=== PATIENT | male | born 1975 | race Caucasian/White ===

== ENCOUNTER 2017-06-11 15:14 | Emergency (ER) | payer OTHER ==
--- NOTE | 2017-06-11 16:06 | EDPHY ---
H & P Stated Complaint: left knee pain, joint effusion on xray today - Medical/Surgical History Hx Asthma: No Hx Chronic Respiratory Disease: No Hx Diabetes: No Hx Cardiac Disease: No Hx Renal Disease: No Hx Cirrhosis: No Hx Alcoholism: No Hx HIV/AIDS: No Hx Splenectomy or Spleen Trauma: No Other PMH: knee sx - Social History Smoking Status: Never smoked Time Seen by Provider: 06/11/17 15:44 HPI/ROS: CHIEF COMPLAINT: Atraumatic left knee pain HISTORY OF PRESENT ILLNESS: 41-year-old male complaining of atraumatic left knee pain since awaking this morning. He has prior history of multiple knee surgeries. He has been active as usual, lasts 1 for a long bike ride yesterday but notes no trauma or unusual events. He woke with a large swollen knee. Went to urgent care had an x-ray performed, showing a large effusion and was referred to the ER for further evaluation after prescription for opiate and prednisone provided to the patient. He denies: Fever, chills, flu-like symptoms, discoloration. REVIEW OF SYSTEMS: A ten point review of systems was performed and is negative with the exception of the items mentioned in the HPI PAST MEDICAL & SURGICAL HISTORY: Multiple left knee surgeries, last one in 2003 SOCIAL HISTORY:Nonsmoker. No IV drug use. PHYSICAL EXAM (Prior to examination, patient consented to physical exam, hands were washed and my usual and customary physical exam procedures followed) 1) GENERAL: Well-developed, well-nourished, alert and oriented. Appears uncomfortable 2) HEAD: Normocephalic, atraumatic 3) HEENT: Pupils equal, round, reactive to light bilaterally. Sclera anicteric. 4) NECK: Full range of motion, no meningeal signs. 5) LUNGS: Clear auscultation bilaterally, no wheezes, no rhonchi, no retractions. 6) HEART: Regular rate and rhythm, no murmur, no heave, no gallop. 7) ABDOMEN: No guarding, no rebound, no focal tenderness, negative McBurney's, negative Fraga's, negative Rovsing's, negative peritoneal sign, 8) MUSCULOSKELETAL: Left lower extremity: Unable to fully extend the left knee. Large effusion noted appears to be primarily prepatellar. Normal color. Increased warmth. No signs of overlying cellulitis. No crepitus. No lymphangitic streaking. Distal DP PT pulses present and brisk. Capillary refill less than 2 sec. 9) BACK: No visual or palpable abnormality. 10) SKIN: No rash, no petechiae. 11) Psychiatric: Patient is oriented X 3, there is no agitation. DIFFERENTIAL DIAGNOSIS: In no particular order including but not limited to acute inflammatory arthritis, crystal induced arthritis, septic arthritis. (Maria Antonia Mandel Sara) Constitutional: Initial Vital Signs Temperature (C) 36.7 C 06/11/17 15:16 Heart Rate 90 06/11/17 15:16 Respiratory Rate 20 06/11/17 15:16 Blood Pressure 114/87 H 06/11/17 15:16 O2 Sat (%) 97 06/11/17 15:16 O2 Delivery Mode Room Air Allergies/Adverse Reactions: oxycodone Allergy (Unknown, Unverified 06/14/17 15:41) Home Medications: Medication Instructions Recorded Atenolol [Tenormin 25 mg (*)] 25 mg PO DAILY 06/12/17 ALPRAZolam [Xanax Xr] 1 mg PO DAILY 06/13/17 predniSONE [Prednisone] 0 mg PO AD 06/13/17 Acetaminophen [Tylenol 325mg (*)] 650 mg PO Q4HRS PRN tab 06/14/17 Naproxen 500 mg PO BID PRN #40 tablet 06/14/17 cefTRIAXone [Rocephin] 2 gm IV DAILY@2000 vial 06/14/17 HYDROmorphone HCL [Dilaudid 2 mg 2 mg PO Q4 PRN #10 tab 06/15/17 (*)] Medical Decision Making Procedures: Procedure: Arthrocentesis. Indication: Evaluation for the possibility of septic joint of the left knee. Risks, benefits, alternatives of the procedure were discussed with the patient and consent obtained. The patient was prepped and draped in the usual sterile fashion over the left medial knee joint. Local anesthesia was provided with 1% lidocaine with lidocaine. The joint space was entered with a 18 gauge needle and 20 cc of cloudy yellow fluid was obtained. There were no immediate complications. The procedure was performed by myself. Procedure: Splint A knee immobilizer splint was applied by ER refinery technician. After application of the splint I returned and re-examined the patient. The splint was adequately immobilizing the joint and distal to the splint the patient's circulation and sensation were intact. Patient shows no signs of compartment syndrome. Was given orthopedic precautions. Procedure: Crutches indications for crutch use discussed with patient. Patient fitted for crutches by ER staff. Observed ambulating with crutches. I think the patient has the capacity to safely use crutches. Usual and customary crutch walking precautions provided (Maria Antonia Mandel) ED Course/Re-evaluation: I took over care of this patient at 5:00 p.m.. We are waiting the results of synovial fluid from knee arthrocentesis. 5:50 p.m., patient evaluated by myself. Synovial fluid analysis reviewed. Preliminary reading no crystals. White cell count of 48,000 is concerning. Patient states that he did have a fever in urgent care prior to being sent to the emergency department. He denies any history of trauma to the left knee. It started bothering him last night at about 8:00 p.m.. We will come up in the middle of the night more painful and swollen. Please see the note of physician administrative office assistant Francois mitchell for further details. Orthopedics, Dr. Charly Valadez paged. 7:25 p.m., the patient has been seen and evaluated by Dr. Emir Valadez of the Orthopedic service. Dr. Valadez performed another arthrocentesis on his left knee and removed a 120 cc of a cloudy yellow synovial fluid. Dr. Valadez feels his presentation is likely secondary to gouty arthritis. However, septic etiology is certainly a concern. At this time Dr. Valadez feels the patient is safe for discharge but with strict return precautions. The patient has been prescribed prednisone as well as meloxicam by his primary care physician. He will take these medications as prescribed. Dr. Valadez has discussed follow-up with him. Dr. Valadez will also follow-up on his lab work tomorrow. The patient understands he is to return to the emergency department for worsening pain, fever, feeling sick/toxic or for any other serious concerns. His remaining emergency department course under my care has been uneventful. He was discharged in stable and improved condition. (McCollester,Valmy B) Re-evaluation after arthrocentesis of 20 cc . Patient has significant relief of symptoms and increased range of motion. Patient's states that he is able tolerate hydrocodone. At the Urgent Care was given a prescription for meloxicam and prednisone. Will discharge home with a prescription for Vicodin as well and orthopedic referral information. (Maria Antonia Mandel) - Data Points Laboratory Results: Laboratory Results 06/11/17 16:30 06/11/17 16:20 Microbiology Results: MICROBIOLOGY 06/11/17 16:06 Knee - Aspirate Gram Stain - Final 06/11/17 16:06 Knee - Aspirate Anaerobic Culture - Preliminary Strep Agalactiae Group B Medications Given: Discontinued Medications Fentanyl (Sublimaze) 100 mcg IVP EDNOW ONE Stop: 06/11/17 16:16 Last Admin: 06/11/17 16:27 Dose: 100 mcg Ketorolac Tromethamine (Toradol) 15 mg IVP EDNOW ONE Stop: 06/11/17 16:16 Last Admin: 06/11/17 16:26 Dose: 15 mg Departure - Departure Disposition: Home, Routine, Self-Care Clinical Impression: Left knee pain, Effusion, left knee, Probable gouty arthritis left knee Condition: Good Instructions: Hydrocodone/Acetaminophen (By mouth), Knee Pain (ED) Additional Instructions: Return to the ER immediately if you experience discoloration, have worsening pain, numbness, tingling, or any other symptoms that concern you. If you received x-rays in the emergency department today, be advised, that ligamentous , tendon, muscular, and other non-bony injury cannot be fully ruled out. Try to keep your affected extremity elevated above the level of your chest, and keep cold packs on the affected area, for the next 48 hours. Read and follow provided instructions. Follow-up with Dr. Valadez of the Orthopedic service. Take meloxicam prednisone as prescribed by your primary care physician. At this time it is thought that the swelling in your left knee and your left knee pain is secondary to a gouty arthritis. However, as discussed with Dr. Valadez there is concern for possible infection as well. Return to the emergency department for worsening pain, fever/chills, feeling achy, sick/toxic or other serious concerns. Referrals: Emir Valadez MD [Medical Doctor] - 1-2 days without fail
[2017-06-11] MEDS ORDERED: fentaNYL 100 MCG/2 ML INJ IVP ONE (16:15)
[2017-06-11] MEDS ORDERED: KETOROLAC 15 MG/1 ML SDV IVP ONE (16:15)
[2017-06-11 16:35] LABS: PLATELET COUNT 140 10^3/uL (150-400)
[2017-06-11 19:50] VITALS: BP 145/83
--- NOTE | 2017-06-12 08:05 | GCON ---
[f rep st] CONSULTATION EMERGENCY DEPARTMENT CONSULTATION AND PROCEDURE NOTE DATE OF CONSULTATION: 06/11/2017 REASON FOR CONSULTATION: Left knee effusion. 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, who wo ke this morning with atraumatic left knee pain and swelling. He has a history of multiple knee surge sergio. He did go for a bike ride yesterday, but does not recognize that this is an obvious antecedent event that is causing his present complaint. He was seen at Urgent Care earlier today where an x-ra y was performed. They felt he had a knee effusion and was referred to the emergency department at [facility] for definitive management. His workup prior to my arrival had included aspira tion of his knee with sending this for cell count, crystal analysis, Gram stain, and cultures. Due t o the equivocal findings of this test, I was asked to see him for Orthopedic specialty consultation. The patient is a generally well-appearing gentleman, who is in moderate distress secondary to discomf ort of his left knee. The knee is held in a flexed position with a pillow underneath it. There is a tense effusion of the knee that is readily evident. He has normal density and turgidity of the thig h and calf musculature. He has a bounding dorsalis pedis pulse with normal sensory examination above the knee, below the knee, and in the foot. RADIOGRAPHS: X-rays were reviewed, which do not reveal any bone or joint abnormality. After reviewing the patient's initial laboratory studies, which revealed a normal CBC with differenti al, a Gram stain that failed to reveal any bacteria, synovial white blood cell count of 48,000, I hav e reaspirated the patient's knee. I removed 90 cc of cloudy yellow fluid that was not foul-smelling. IMPRESSIONS/RECOMMENDATIONS: The leading contender in his diagnosis would be sudden gout arthropathy . 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 It is also possible this is an infectious process. It is difficult to ascertain between the two. Once his knee was drained, he was significantly more comfortable. I do not feel that an urgent I a nd D procedure is necessary at this point, as it is not clear that this is an infectious process at a ll, as much as he has no constitutional symptoms of fever, chills, myalgias, or rigors. The initial crystal analysis did not reveal any crystals within the joint. However, I await final analysis of th is. This would likely not happen until tomorrow. In the meantime, the patient was given previously a prescription for prednisone, also for the presumptive diagnosis of gouty arthropathy, as well as a nonsteroidal anti-inflammatory. It is safe for him to be discharged from the emergency department an d I will monitor his laboratory tests. I verified the patient and his 's phone numbers, such aníbal t I am able to contact them once his lab results become known. I also explained to him, the indicati ons for when to return to the emergency department if things are unmanageable. /[id number]/MODL
== END 2017-06-11 19:49 | disposition home or self-care (01) ==
PROC: 0S9D3ZZ Drainage of Left Knee Joint, Percutaneous Approach (ICD-10-PCS; principal; 2017-06-11)
DX: M25.562 Pain in left knee (principal); M25.462 Effusion, left knee
CPT/HCPCS: 96374; J1885; J3010

== ENCOUNTER → 2017-06-11 | Outpatient (CLI) | payer OTHER | LOC: BMCIMAGING 13:44 | PROVIDERS: ATTEND Family Medicine | DX: M25.462 Effusion, left knee (principal) ==

== ENCOUNTER 2017-06-12 07:11 | Inpatient (IN) | payer OTHER ==
--- NOTE | 2017-06-12 07:39 | EDPHY ---
HPI/HX/ROS/PE/MDM Narrative: CHIEF COMPLAINT: Left knee pain HPI: The patient is a 41-year-old male with a history of several prior left knee surgeries including 2 ACL repairs and 3 cartilage repairs. He was seen in the emergency department yesterday for acute severe left knee swelling and pain. An arthrocentesis was performed which revealed no organisms but 48,000 white blood cells. He was evaluated by Dr. Valadez from Orthopedics and was sent home on prednisone and locks can. He returns this morning because swelling has completely returned and he is in agonizing pain. He is unable to bend his knee. He denies fever. REVIEW OF SYSTEMS: Aside from elements discussed in the HPI, a comprehensive 10-point review of systems was reviewed and is negative. PMH: Includes multiple prior left knee surgeries. No other significant past medical history. 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 Denies alcohol or drug abuse. PHYSICAL EXAM: General:Patient is alert, in no acute distress. ENT:Eyes are normal to inspection. ENT inspection normal. Neck: Normal inspection. Full range of motion. Respiratory:No respiratory distress. Breath sounds normal bilaterally. Cardiovascular: Regular rate and rhythm. Strong peripheral pulses. Normal cap refill. Abdomen:The abdomen is nontender to palpation. There are no peritoneal signs. There are normal bowel sounds. Back: Normal to inspection. No tenderness to palpation. Skin: Normal color. No rash. Warm and dry. Extremities: Left knee is diffusely swollen with palpable effusion. There is moderate warmth. There is no erythema. Patient is in exquisite pain with any motion of the left knee. Neuro: Oriented x3. Normal motor function. Normal sensory function. ED Course: 729: Consulted Dr. Valadez. He recommends MRI of knee and he will consult. Patient treated with IV Dilaudid and Ativan. 1000: Re-paged Dr. Valadez and spoke to PA, informed her that patient is in severe pain and begging to see Dr. Valadez. She stated Dr. Valadez should be here in 20 minutes. Patient asking for a therapeutic arthrocentesis. At this point I do not think this is in the patient's interest, as this will increase chance of infection and may affect patient's potential operative course. 1050: Patient and extremely upset that they have not been seen by orthopedics. I have re-paged again. Patient offered but refusing any additional pain medication. Dr. Valadez at bedside 1100. - Data Points Imaging Results: Imaging Impressions Lower Extremity MRI 06/12/17 07:48 Impression: 1. Severe degenerative tear mid body and posterior horn medial meniscus, as above. There is an undersurface flap at the midbody with near complete transection at the posterior medial corner. Subluxation of the posterior horn towards the intercondylar notch. 2. Horizontal longitudinal tear midbody lateral meniscus. 3. 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 4. ACL reconstruction, intact. 5. Large left knee joint effusion. Results called to Dr. Harris at 9:00 a.m. Medications Given: Discontinued Medications Hydromorphone HCl (Dilaudid) 0.5 mg IVP EDNOW ONE Stop: 06/12/17 08:42 Last Admin: 06/12/17 08:47 Dose: 0.5 mg Hydromorphone HCl (Dilaudid) 0.5 mg IVP EDNOW ONE Stop: 06/12/17 09:53 Last Admin: 06/12/17 09:53 Dose: Not Given Hydromorphone HCl (Dilaudid) 1 mg IVP EDNOW ONE Stop: 06/12/17 09:54 Last Admin: 06/12/17 09:58 Dose: 1 mg Lorazepam (Ativan Injection) 1 mg IVP EDNOW ONE Stop: 06/12/17 09:38 Last Admin: 06/12/17 09:44 Dose: 1 mg General Time Seen by Provider: 06/12/17 07:26 Initial Vital Signs: Initial Vital Signs Temperature (C) 37.1 C 06/12/17 07:17 Heart Rate 90 06/12/17 07:17 Respiratory Rate 16 06/12/17 07:17 Blood Pressure 138/92 H 06/12/17 07:17 O2 Sat (%) 96 06/12/17 07:17 O2 Delivery Mode Nasal Cannula O2 (L/minute) 3 Allergies/Adverse Reactions: oxycodone [From Percocet] Allergy (Verified 06/12/17 07:17) Home Medications: Medication Instructions Recorded Atenolol [Tenormin 25 mg (*)] 25 mg PO DAILY 06/12/17 ALPRAZolam [Xanax Xr] 1 mg PO DAILY 06/13/17 predniSONE [Prednisone] 0 mg PO AD 06/13/17 Departure - Departure Disposition: [facility] Inpatient Acute Clinical Impression: Effusion, left knee Condition: Fair
[2017-06-12] MEDS ORDERED: HYDROmorphONE/DILAUDID 2 MG/ML INJ IVP ONE ×4 (08:41→11:35)
[2017-06-12] MEDS ORDERED: LORazepam 2 MG/ML INJ IVP ONE (09:37)
[2017-06-12] MEDS ORDERED: NS 1,000 ML IV ONE ×2 (11:35→13:08)
[2017-06-12] MEDS ORDERED: ACETAMINOPHEN 325 MG TAB PO PRN (12:36)
[2017-06-12] MEDS ORDERED: ONDANSETRON 4 MG/2 ML VIAL IVP PRN ×2 (12:36→16:46)
[2017-06-12] MEDS ORDERED: ZOLPIDEM TARTRATE 5 MG TAB PO PRN (12:36)
[2017-06-12] MEDS ORDERED: ONDANSETRON DISINTEGRATING 4 MG TAB PO PRN (12:36)
[2017-06-12] MEDS ORDERED: HYDROmorphONE/DILAUDID 1 MG/ML INJ IVP PRN (12:36)
[2017-06-12] MEDS ORDERED: HYDROmorphONE/DILAUDID 2 MG/ML INJ ONE (12:52)
[2017-06-12] MEDS: NS 1,000 ML IV SCH ×2 (13:09→21:40)
--- NOTE | 2017-06-12 13:27 | SOAPPROG ---
SOAP Progress Note Assessment/Plan: Assessment: Possible Left knee septic arthritis and medial and lateral meniscus tears Plan: Patients knee was drained again today by Dr. Gee in the ER. 100cc aspirated from the left knee Plan for taking the patient to the OR tonight for a left knee arthroscopy irrigation and debridement and partial medial and lateral meniscectomies, the gram stain & crystals are negative but he WBC from the synovial fluid is 48,000 which is concerning for infection. With the amount of continued swelling and pain the patient is having, he would benefit a left knee surgery. All the risks, benefits and complications were explained to the patient and consent was obtained. Pain Medicine prn Ice/elevation left knee Ortho to follow Subjective: Patient seen in the ER by Dr. Gee and myself. He has significant pain in his left knee. His knee was aspirated in the ER last night and he came back to the ER today due to increased pain and swelling in his left knee. He would like his knee drained again. Objective: Vital Signs Temp Pulse Resp BP Pulse Ox 36.7 C 80 16 137/94 H 97 06/12/17 08:33 06/12/17 11:44 06/12/17 11:44 06/12/17 11:44 06/12/17 11:44 Physical exam of the Left knee: there is an effusion present. Pain with any range of motion of palpation over the knee. Normal sensation to light touch in the LLE. Distal pulse present in the LLE. ICD10 Worksheet Patient Problems: Problems Problem Status Onset Effusion, left knee Acute - ICD10 Problem Qualifiers (1) Effusion, left knee
[2017-06-12] MEDS: KETOROLAC 30 MG/1 ML SDV IVP PRN (14:35)
[2017-06-12] MEDS ORDERED: HYDROmorphONE/DILAUDID 2 MG/ML INJ IVP PRN (14:37)
[2017-06-12] MEDS ORDERED: LR 1,000 ML IV ONE (16:01)
[2017-06-12] MEDS ORDERED: LR 1,000 ML IV SCH (16:30)
[2017-06-12] MEDS ORDERED: BUPIVACAINE 0.25% 30 ML SDV ONE (16:44)
[2017-06-12] MEDS ORDERED: MEPERIDINE 25 MG/ML SYR IVP PRN (16:46)
[2017-06-12] MEDS ORDERED: LR 500 ML IV PRN (16:46)
[2017-06-12] MEDS ORDERED: NALOXONE HCL 0.4 MG/ML INJ IVP PRN (16:46)
[2017-06-12] MEDS ORDERED: LABETALOL HCL 5 MG/ML 20 ML MDV IVP PRN (16:46)
[2017-06-12] MEDS ORDERED: PROMETHAZINE HCL 25 MG/ML INJ IVP PRN (16:46)
[2017-06-12] MEDS ORDERED: ACETAMINOPHEN 500 MG TAB PO PRN (16:46)
[2017-06-12] MEDS ORDERED: fentaNYL 100 MCG/2 ML INJ IVP PRN (16:46)
[2017-06-12] MEDS ORDERED: DEXAMETHASONE 4 MG/ML VIAL IVP PRN (16:46)
--- NOTE | 2017-06-12 16:46 | PDANEPAE ---
ANE Past Medical History - Cardiovascular History Hx Hypertension: Yes - Pulmonary History Hx Oxygen in Use at Home: No Hx Sleep Apnea: No Sleep Apnea Screening Result - Last Documented: Negative - Endocrine History Hx Diabetes: No Obesity: no ANE Review of Systems Review of Systems: - Exercise capacity METS (RN): 6 METS ANE Patient History - Allergies Allergies/Adverse Reactions: oxycodone [From Percocet] Allergy (Verified 06/12/17 07:17) - Home Medications Home Medications: Atenolol [Tenormin 25 mg (*)] 25 mg PO DAILY 06/12/17 [Last Taken 06/12/17] - NPO status NPO Status: no food or drink >8 hours NPO Since - Liquids (Date): 06/12/17 NPO Since - Liquids (Time): 07:30 NPO Since - Solids (Date): 06/12/17 NPO Since - Solids (Time): 07:30 - Anes Hx Anes Hx: no prior problems - Smoking Hx Smoking Status: Never smoked ANE Labs/Vital Signs - Vital Signs Blood Pressure: 129/81 Heart Rate: 75 Respiratory Rate: 19 O2 Sat (%): 98 Height: 177.8 cm Weight: 83.91 kg ANE Physical Exam - Airway Neck exam: FROM Mallampati Score: Class 2 Mouth exam: normal dental/mouth exam - Pulmonary Pulmonary: no respiratory distress, no rales or rhonchi, clear to auscultation - Cardiovascular Cardiovascular: regular rate and rhythym, no murmur, rub, or gallop - ASA Status ASA Status: II ANE Anesthesia Plan Anesthesia Plan: GA w LMA
[2017-06-12] MEDS ORDERED: PROPOFOL 200 MG/20 ML VIAL ONE (17:05)
[2017-06-12] MEDS ORDERED: LIDOCAINE 2% 5 ML SDV ONE ×2 (17:06→17:52)
[2017-06-12] MEDS ORDERED: LIDOCAINE 2% JELLY 5 ML TUBE ONE (17:06)
[2017-06-12] MEDS ORDERED: ONDANSETRON 4 MG/2 ML VIAL ONE (17:06)
[2017-06-12] MEDS ORDERED: ceFAZolin 1 GM VIAL ONE ×2 (17:37)
[2017-06-12] MEDS ORDERED: KETOROLAC 30 MG/1 ML SDV ONE (17:58)
--- NOTE | 2017-06-12 18:23 | PDGENHP ---
History and Physical History and Physical: CC: Left knee pain HISTORY: This is generally quite healthy man has a history of ACL repair and meniscus disease in his left knee but has been doing quite well, running and biking quite a bit without difficulty until just recently. Several days ago he started having some low-grade pain in the left knee but yesterday became severe. It seems swollen. He came into the ER and there was an effusion but no fever or redness and he was moving the knee. He was seen by orthopedic clinical science consultant and based on results of examination felt to most likely have gout or pseudogout or other non infectious inflammatory cause of his pain. Fluid did have a high white blood cell count but Gram stain was negative. The patient was sent home with some steroid and anti-inflammatory medicine. He comes back in today with increasingly severe excruciating pain he says is 10 of 10 and unable to move his knee. No chills or sweats. He does not recall any recent injuries. 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 No street drugs or alcohol Quite physically active running and biking MEDICATIONS: The patients list has been reconciled by our clinical pharmacist in the EMR. I have reviewed the list and ordered appropriate medicines. PHYSICAL EXAMINATION: Vital Signs: Stable without fever Examination: General: alert, oriented, good mentation, looks quite uncomfortable, writhing unable to hold still Skin: warm, dry, good color, no rash HEENT: normal Neck: no mass or jvd Resps: relaxed Lungs: clear breath sounds Heart: regular, no murmur Abdomen: soft, nondistended, nontender, +BS, Upper Extremities: normal Lower Extremities: Left knee with obvious effusion, warm, unable to move due to pain, essentially no range of motion No Bleeding or bruising Neurologic: normal speech/language, normal templer head, no focal weakness IV site: looks normal LABORATORY DATA: No laboratory data is at this time from today Yesterday's blood tests showed a mildly elevated white blood cell count, and a CRP elevated 22 Synovial fluid done yesterday had 48,000 white blood cells predominance of neutrophils, low glucose level, negative Gram stain MICROBIOLOGY: Initial review of microbiology today had no growth in cultures but we have now received report from laboratory that is growing a Streptococcus in his synovial fluid RADIOLOGY STUDIES: MRI of the knee done today, I reviewed the images with Dr. Sheppard. He has evidence of a large effusion, meniscal tears an old ACL repair ASSESSMENT: -acute septic arthritis of left knee with streptococcal growth in culture from synovial fluid -severe pain and immobility of the knee due to above PLANS: -have ordered Ancef to begin now -pain management -he will go to the OR tonight for washout of the knee and exploration I have reviewed the patient's case in detail with Dr. Armand Harris I have reviewed the patient's past medical records as part of this assessment, including medical records from yesterday's ER visit is at including laboratory data and x-rays as well as physician notes
--- NOTE | 2017-06-12 18:42 | POSTANESTH ---
Post Anesthetic Evaluation Cardiovascular Status: Similar to Pre-Op Cond Respiratory Status: Normal, Stable, Similar to Pre-op Cond. Level of Consciousness/Mental Status: Can Participate in Eval, Mildly Sleepy, Arousable Pain Control: Adequate, Prn Tx Ordered Nausea/Vomiting Control: Adequate, Prn Tx Ordered Complications Possibly Related to Anesthesia: None Noted
--- NOTE | 2017-06-12 18:49 | POSTOPPROG ---
Post Op Note Date of Operation: 06/12/17 Surgeon: Ericka Gee Facilities Locator: Anju Ch PA-C Anesthesia: GET(General Endotracheal) Pre-op Diagnosis: Possible left knee septic arthritis, medial & lateral meniscus tear Post-op Diagnosis: Possible left knee septic arthritis, medial & lateral meniscus tear Indication: rule out left knee infection Procedure: left knee arthroscopy I&D partial medial menisectomy Findings: see dictated op note Inf/Abcess present in the surg proc area at time of surgery?: No EBL: Minimal Complications: none Specimen(s): left knee synovial fluid sent to pathology: gram stain,cultures, fungal
--- NOTE | 2017-06-12 18:53 | SOAPPROG ---
SOAP Progress Note Assessment/Plan: Assessment: Rule out Left knee septic arthritis and medial and lateral meniscus tears Status post left knee arthroscopy I&D partial medial meniscectomy Plan: Left knee synovial fluid sent to pathology: gram stain, cultures, fungal. F/U results Ancef 2grams IV every 8 hours until cultures/gram stain are back [address] in medial and lateral aspect of his left knee: empty drains every shift Pain Medicine prn Ice/elevation left knee Ortho to follow Subjective: Pt presents to [facility] ER last night 06/11 and the again this morning 06/12 with a left knee effusion and significant pain. He had multiple knee aspirations. He just underwent a left knee arthroscopy I&D, Partial medial meniscectomy. Objective: Vital Signs Temp Pulse Resp BP Pulse Ox 37.3 C 75 20 149/99 H 100 06/12/17 16:23 06/12/17 16:46 06/12/17 18:39 06/12/17 18:39 06/12/17 18:39 Physical exam of the left knee: dry dressing is in place. [address] : medial and lateral knee drains. Pt is able to move toes. NVI. ICD10 Worksheet Patient Problems: Problems Problem Status Onset Effusion, left knee Acute - ICD10 Problem Qualifiers (1) Effusion, left knee
--- NOTE | 2017-06-12 19:27 | GOP ---
[f rep st] OPERATIVE REPORT DATE OF OPERATION: 06/12/2017 SURGEON: Chrissy Gee MD SUPERVISOR DIE CASTING: Anju Ch PA-C. Use of a surgical services assistant was required for leg positioning during the procedure. ANESTHESIA: General. PREOPERATIVE DIAGNOSIS: 1. Possible septic arthritis, left knee. 2. Medial meniscus tear, left knee. POSTOPERATIVE DIAGNOSIS: 1. Possible septic arthritis, left knee. 2. Medial meniscus tear, left knee. PROCEDURE PERFORMED: 1. Arthroscopic irrigation and debridement of the left knee for possible septic arthritis. 2. Partial medial meniscectomy, left knee. FINDINGS: INDICATIONS: This is a 41-year-old male with severe pain and swelling over the past 2 days. Aspirat ion has revealed a white blood count of 48,000 in the synovial fluid, and gram stain cultures are neg ative; however, the patient is clinically not improving despite 2 aspirations. Give the high white c ount and failure clinically to improve, we are recommending the above surgery. We have discussed ris ks, benefits and limitations of the procedure preoperatively with the patient. DESCRIPTION OF PROCEDURE: After an adequate general anesthetic was obtained, an exam under anesthesi a of the left knee revealed a full range of motion with a stable [place]. There was no varus or valg us posterior or posterolateral laxity present. The patient's left lower extremity was placed in the leg holding device with adequate padding and was prepped and draped in the usual sterile fashion. Antibiotics were held until cultures could be obta ined. The limb was exsanguinated with the Esmarch. Tourniquet elevated to 300 mmHg pressure. The standard superolateral, anteromedial and anterolateral arthroscopic portals were established with an 11 blade . A 4 mm, 30 degree arthroscope was introduced through the anterolateral portal and a systematic exa mination of the knee was carried out. There was very cloudy fluid, which was drained through the egr ess cannula and sent for aerobic, anaerobic and fungal cultures. There was some fibrinous material i n the joint, which was debrided with a shaver. There was some diffuse synovitis. The patellar articular surface did reveal some central shaggy, grade 2-3 chondromalacia. A chondropl asty was performed. Central trochlea revealed grade 1 softening. The ACL graft was intact. There was a tiny, very small amount of chondrocalcinosis along the medial portion of the femoral notch, which was debrided. There was no other chondral calcinosis noted throu ghout the joint. The lateral compartment was entered. The lateral articular surfaces revealed a grade 1 softening. T here was an area of graded 4 exposed bone centrally in the lateral femoral condyle, measuring approxi mately 1 x 1 cm. There was evidence of a previous partial lateral meniscectomy with no further later al meniscal pathology. The medial compartment was entered. The medial femoral condyle revealed grade 2 chondromalacia diffu sely, as did the tibial plateau. There was a very large displaced flap tear in the posterior horn of the medial meniscus, which was unstable. A partial medial meniscectomy was carried out, resecting t his back to a stable 2 mm rim. The final rim was contoured and balanced with a small shaver. The knee was now thoroughly irrigated with 14 liters of normal saline via the arthroscopic pump. Two large drains were left in place through the superolateral, and an additional superomedial portal. The arthroscopic instruments were removed. The portals were closed using interrupted 3-0 nylon sut ures. The drains were sutured in place. The tourniquet was deflated after 48 minutes tourniquet time. Sterile dressings were applied, follow ed by an Laz wrap. There were no complications. The patient tolerated the procedure well and returned to the recovery r oom in stable condition. /[id number]/MODL
--- NOTE | 2017-06-12 19:59 | PDMN ---
Medical Necessity Medical necessity: Patient meets inpatient criteria per physician note and [facility] [place] -[place] Septic Arthritis - 3 days - (acute septic arthritis L knee, awaiting L knee I&D and partial medial/lateral meniscectomies; synovial fluid w/ streptococcal growth; anticipated LOS > 2 midnights for surgical intervention, IV antibiotics, IV opioids for pain control.)
[2017-06-12] MEDS: ceFAZolin 2 GM/SWFI 2 GM/20 ML SYR IVP SCH (21:31)
[2017-06-12] MEDS ORDERED: ceFAZolin 2 GM/DEXTROSE 100 ML IV SCH ×2 (22:00)
[2017-06-12] MEDS ORDERED: ceFAZolin 2 GM/SWFI 2 GM/20 ML SYR IVP SCH (22:00)
[2017-06-13] MEDS: KETOROLAC 30 MG/1 ML SDV IVP PRN ×3 (00:14→15:29)
[2017-06-13 05:25] LABS: PLATELET COUNT 148 10^3/uL (150-400)
[2017-06-13] MEDS: ceFAZolin 2 GM/SWFI 2 GM/20 ML SYR IVP SCH ×3 (05:28→22:33)
--- NOTE | 2017-06-13 08:12 | SOAPPROG ---
SOAP Progress Note Assessment/Plan: Assessment: Rule out Left knee septic arthritis and medial and lateral meniscus tears Status post left knee arthroscopy I&D partial medial meniscectomy Plan: Left knee synovial fluid sent to pathology: gram stain, cultures, fungal. F/U results Prelim results from original aspirate: Strep Agalactiae Group B Ancef 2grams IV every 8 hours until cultures/gram stain are back: appreciate reccs from hospitalists and I/D. Drain in place: empty drains every shift and report values. Pain Medicine prn Ice/elevation left knee WBAT: PT/OT eval, appreciate their reccs. Ortho to follow: watch for abnormal bleeding/oozing/discharge, change in heat/ color of extremity, abnormal numbness/tingling. Patient discussed/agreed upon with Dr. Gee. 06/13/17 08:16 Subjective: Subjective: [facility] and the again this morning 06/12 with a left knee effusion and significant pain. He had multiple knee aspirations. He just underwent a left knee arthroscopy I&D, Partial medial meniscectomy. Alert and oriented, able to respond appropriately to questions. Denies numbness/ tingling, change in heat/color of extremity or of wound site, cough, congestion , chest pain, SOB, dyspnea, claudication, abnormal bleeding/oozing/discharge. Objective: Vital Signs Temp Pulse Resp BP Pulse Ox 36.8 C 70 16 126/70 H 98 06/13/17 07:25 06/13/17 07:25 06/13/17 07:25 06/13/17 07:25 06/13/17 07:25 Microbiology 06/12/17 17:40 Gram Stain - Final Knee - Aspirate Laboratory Results 06/13/17 04:48 06/13/17 04:48 06/12/17 06/13/17 06/14/17 05:59 05:59 05:59 Intake Total 2600 Output Total 1625 Balance 975 A/o. Able to respond appropriately to questions. NAD. Non-labored breathing. No diaphoresis. M/S: Left knee with no abnormal bleeding/oozing/discharge. Drain in place. No change in heat/color of extremity. Passive ROM in great toe in all planes produced no reproducible pain in lower compartments. DNVI b/l with gross sensation intact and no focal deficits. Brisk cap refill b/l in lower extremities with negative b/l Homans. Calves soft/supple and NTTP b/l. ICD10 Worksheet Patient Problems: Problems Problem Status Onset Effusion, left knee Acute
[2017-06-13] MEDS: ENOXAPARIN 40 MG/0.4 ML SYR SC SCH (09:19)
--- NOTE | 2017-06-13 12:48 | ASMTCMCOM ---
CM Note CM Note Notes: Pt in for knee effusion, had L knee I&D. OT/PT recs pending. PT currently on IV cefazoline Q8. Pt resides with and works at . D/c needs are TBD. CM will continue to follow for d/c planning. Date Signed: 06/13/2017 12:47 PM Electronically Signed By:PURVI Bliss
[2017-06-13] MEDS ORDERED: LACTULOSE 20 GM/30 ML UDCUP PO PRN (13:45)
[2017-06-13] MEDS ORDERED: MAGNESIUM HYDROXIDE 30 ML UDCUP PO PRN (13:45)
[2017-06-13] MEDS ORDERED: POLYETHYLENE GLYCOL 3350 17 GM PKT PO PRN (13:45)
[2017-06-13] MEDS ORDERED: BISACODYL 10 MG SUPP PR PRN (13:45)
--- NOTE | 2017-06-13 18:30 | HOSPPROG ---
Hospitalist Progress Note Assessment/Plan: DIAGNOSES: -acute septic arthritis of left knee with group B streptococcal growth in synovial fluid -acute pain management PLANS: -continue current antibiotics -follow condition of knee, he may potentially need another washout if he is not resolving well -ortho evaluation ongoing for any need for further washout or other procedures -infectious disease consultation SUBJECTIVE: Still with quite a bit of pain in immobility in the knee but is definitely better than yesterday No fever symptoms OBJECTIVE Vitals reviewed: Stable without fever Exam: alert oriented skin warm dry color ok resps not labored lungs clear BSs heart regular abd soft nondistended nontender, bowel sounds present limbs still with quite a bit of swelling redness tenderness around the left knee and mobility of that knee is still severely limited, [address] both with some did fluid draining, serosanguineous on the 1 side slightly purulent looking fluid in the tube on the other side iv site ok Laboratory data: White blood cell count is elevated otherwise normal CBC and Chem panel Microbiology: The initial synovial fluid culture from his ER visit the day before this admission is now growing Streptococcus group B Objective: Vital Signs Temp Pulse Resp BP Pulse Ox 36.9 C 84 14 143/92 H 96 06/13/17 15:20 06/13/17 15:20 06/13/17 15:20 06/13/17 15:20 06/13/17 15:20 Microbiology 06/12/17 17:40 Gram Stain - Final Knee - Aspirate Laboratory Results 06/13/17 04:48 06/13/17 04:48 06/12/17 06/13/17 06/14/17 06:59 06:59 06:59 Intake Total 2600 Output Total 1625 Balance 975 ICD10 Worksheet Patient Problems: Problems Problem Status Onset Effusion, left knee Acute
[2017-06-13] MEDS: CYCLOBENZAPRINE 10 MG TAB PO SCH (20:06)
[2017-06-13] MEDS: HYDROmorphONE/DILAUDID 2 MG TAB PO PRN (23:13)
[2017-06-13] MEDS: SENNOSIDES/DOCUSATE SODIUM TAB PO SCH (23:14)
[2017-06-13] MEDS ORDERED: predniSONE 10 MG TAB PO ONE (23:15)
[2017-06-14] MEDS: KETOROLAC 30 MG/1 ML SDV IVP PRN ×2 (06:50→13:30)
[2017-06-14] MEDS: ceFAZolin 2 GM/SWFI 2 GM/20 ML SYR IVP SCH ×2 (06:50→15:12)
[2017-06-14] MEDS: ATENOLOL 25 MG TAB PO SCH (08:27)
[2017-06-14] MEDS: SENNOSIDES/DOCUSATE SODIUM TAB PO SCH ×2 (08:28→20:32)
[2017-06-14] MEDS: ENOXAPARIN 40 MG/0.4 ML SYR SC SCH (08:29)
[2017-06-14] MEDS ORDERED: ALTEPLASE 2 MG VIAL IVP PRN (14:02)
--- NOTE | 2017-06-14 14:02 | PDIAF ---
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 PICC Care - Routine: Yes - Orders Services needed: Registered Nurse - Labs/Radiology CBC w/diff Date: 06/18/17 (weekly) CMP Date: 06/18/17 (weekly) Call or Fax Lab and Imaging Results to: Dr. Jakob Rocha - Follow Up Care Current Providers and Referrals: NONE *PRIMARY CARE P,. [Primary Care Provider] - As per Instructions
--- NOTE | 2017-06-14 15:34 | ASMTCMCOM ---
CM Note CM Note Notes: Chart reviewed. Discussed with MD. Patient to dc home with PICC and IV antibiotic infusions. PICC ordered. IV antibiotics changed to daily. DC to happen tomorrow after patient seen by ortho. ID notes sent to [facility] and [facility] via [facility]. Grazyna visited with patient and HC RN to open. Disposition: Home with home infusion and HHC RN Date Signed: 06/14/2017 03:32 PM Electronically Signed By:Clara Thompson RN
[2017-06-14] MEDS ORDERED: HYDROmorphone HCL/NS 0.5 MG/ML SYR IVP PRN (16:00)
--- NOTE | 2017-06-14 16:10 | PDIAF ---
- Diagnosis Diagnosis: septic arthritis L knee group b strep Code Status: Full Code - Medication Management Discharge Medications: Medications to Continue on Transfer Atenolol [Tenormin 25 mg (*)] 25 mg PO DAILY 06/12/17 [Last Taken 06/12/17] ALPRAZolam [Xanax Xr] 1 mg PO DAILY 06/13/17 [Last Taken 06/12/17] predniSONE [Prednisone] 0 mg PO AD 06/13/17 [Last Taken 06/12/17 60mg] Acetaminophen [Tylenol 325mg (*)] 650 mg PO Q4HRS PRN tab 06/14/17 [Last Taken Unknown] Naproxen 500 mg PO BID PRN #40 tablet 06/14/17 [Last Taken Unknown] cefTRIAXone [Rocephin] 2 gm IV DAILY@1999 vial 06/14/17 [Last Taken Unknown] [employer] Antibiotics: ceftriaxone 2 g IV qday [employer] Antibiotic Stop Date: 06/27/17 Discharge Medications: Refer to the Discharge Home Medication list for PRN reason. PICC Care - Routine: Yes - Orders Services needed: Home Care, Registered Nurse Home Care Face to Face: I certify that this patient was under my care and that I had the required [id number] encounter meeting the encounter requirements on the discharge day. My findings support the fact that the patient is homebound as defined in Home Care Face to Face Continued: CMS Chapter 7 Medicare Benefits Manual 30.1.1 , The condition of the patient is such that there exists a normal inability to leave home and consequently, leaving home would require a considerable and taxing effort. Isolation Type: None Oxygen: NA Diet Recommendation: no restrictions on diet - Labs/Radiology CBC w/diff Date: 06/18/17 (weekly) CMP Date: 06/18/17 (weekly) Call or Fax Lab and Imaging Results to: Dr. Jakob Rocha - Follow Up Care Current Providers and Referrals: Ericka Gee MD [Medical Doctor] - follow up in 1 week NONE *PRIMARY CARE P,. [Primary Care Provider] - As per Instructions Jakob Rocha MD [Medical Doctor] - follow up in 2 weeks ()
--- NOTE | 2017-06-14 18:26 | SOAPPROG ---
SOAP Progress Note Assessment/Plan: Assessment: Rule out Left knee septic arthritis and medial and lateral meniscus tears: Status post left knee arthroscopy I&D partial medial meniscectomy Plan: Left knee synovial fluid sent to pathology: positive for Strep Agalactiae Group B. Continue PICC line and medications per ID and hospitalist. Appreciate their reccs. Drains no longer in place: continue to monitor for abnormal bleeding/oozing/ discharge. Dressing: maintain dry dressing. Discussed with JOSS Leal. -Upon D/C can begin showering over the wound if uses waterproof bandaids and then replaces with new dry bandaids. Pain Medicine prn: pain well managed at today's visit. Ice/elevation left knee WBAT: PT/OT eval, appreciate their reccs. Ortho to follow: watch for abnormal bleeding/oozing/discharge, change in heat/ color of extremity, abnormal numbness/tingling. Questions/concerns call our office at [phone]. Patient discussed/agreed upon with Dr. Gee. Subjective: Pt presents to [facility] ER 06/11 and the again on 06/12 with a left knee effusion and significant pain. He had multiple knee aspirations. He just underwent a left knee arthroscopy I&D, Partial medial meniscectomy. Cultures positive, see results below. Alert and oriented, able to respond appropriately to questions. Denies numbness/ tingling, change in heat/color of extremity or of wound site, cough, congestion , chest pain, SOB, dyspnea, claudication, abnormal bleeding/oozing/discharge, worsening pain, fever, chills, NVD. Has been up ambulating without difficulty. Pain well managed. Objective: MICROBIOLOGY 06/12/17 17:40 Knee - Aspirate Gram Stain - Final 06/12/17 17:40 Knee - Aspirate Anaerobic Culture - Preliminary Strep Agalactiae Group B Vital Signs Temp Pulse Resp BP Pulse Ox 36.8 C 90 16 133/84 H 95 06/14/17 11:55 06/14/17 11:55 06/14/17 11:55 06/14/17 11:55 06/14/17 11:55 Microbiology 06/12/17 17:40 Gram Stain - Final Knee - Aspirate Laboratory Results 06/13/17 04:48 06/13/17 04:48 06/13/17 06/14/17 06/15/17 05:59 05:59 05:59 Intake Total 2600 690 1900 Output Total 1625 1150 Balance 975 -460 1900 A/o. Able to respond appropriately to questions. NAD. Non-labored breathing. No diaphoresis. M/S: Left knee with no abnormal bleeding/oozing/discharge. Upon take down of dressing, edema noted to left knee with no evidence of erythema, calor, signs of infection. No fluctuance noted. Drains in place, which I removed with Dr. Gee during physical exam. No change in heat/color of extremity. Passive ROM in great toe in all planes produced no reproducible pain in lower compartments. DNVI b/l with gross sensation intact and no focal deficits. Brisk cap refill b/ l in lower extremities with negative b/l Homans. Calves soft/supple and NTTP b/ l. Able to ambulate with use of crutches. - Pending Discharge Pending Discharge Within 48 Hours: Yes Pending Discharge Date: 06/16/17 (Per hospitalists. ) Pending Discharge Time: 11:00 ICD10 Worksheet Patient Problems: Problems Problem Status Onset Effusion, left knee Acute
--- NOTE | 2017-06-14 19:14 | HOSPPROG ---
Hospitalist Progress Note Assessment/Plan: Assessment: 42-year-old male presents with acute left knee septic arthritis Plan: 1. Septic arthritis. Acute, left knee, present on admission, unclear precipitant, discussed with Dr. Jakob Rocha, he suggests that it is possible that the patient may have seeded group B strep from his pharyngeal area and in his left knee is susceptible in the setting of previous surgery -MRI demonstrating meniscal tear, ACL intact, effusion, op report demonstrating cloudy material with visible synovitis, Gram stain culture with group B strep -discussed with Dr. Gee, he reports that the screws did not appear to be involved in the infection, he is comfortable with the plan of 2 weeks of IV antibiotics and then reassessment in the outpatient setting through infectious disease -the patient will have his left knee drains removed today, will follow up with Dr. Gee in 1 week as an outpatient, local addressing in wound care acceptable -counseled the patient regarding pain control, he prefers naproxen for pain management, ordered -discussed with Dr. Jakob Rocha, he recommends IV ceftriaxone times 14 days, discussed with case management Diet. Regular Prophylaxis. Moderate risk patient, Lovenox 40 Code. Full Disposition. Anticipated discharge 06/15, pending stability of left knee outlined above. Subjective: Improved ambulatory abilities today, continues to utilize crutches Objective: Vital Signs Temp Pulse Resp BP Pulse Ox 36.8 C 90 16 133/84 H 95 06/14/17 11:55 06/14/17 11:55 06/14/17 11:55 06/14/17 11:55 06/14/17 11:55 Microbiology 06/12/17 17:40 Gram Stain - Final Knee - Aspirate Laboratory Results 06/13/17 04:48 06/13/17 04:48 06/13/17 06/14/17 06/15/17 05:59 05:59 05:59 Intake Total 2600 690 3400 Output Total 1625 1150 Balance 975 -460 3400 - Time Spent With Patient Time Spent with Patient: greater than 25 minutes Time Spent with Patient: Greater than 25 minutes spent on this patients care, greater than 50% of time spent counseling, educating, and coordinating care regarding the above mentioned plan. - Pending Discharge Pending Discharge Within 24 Hours: Yes Pending Discharge Date: 06/15/17 Pending Discharge Time: 11:00 - Physical Exam Constitutional: no apparent distress, appears nourished, not in pain Musculoskeletal: other (Swelling left knee, mild tenderness, drains in place) Neurologic: AAOx3 Psychiatric: not anxious, not encephalopathic, No agitated ICD10 Worksheet Patient Problems: Problems Problem Status Onset Effusion, left knee Acute
[2017-06-14] MEDS ORDERED: cefTRIAXone 2 GM in STERILE WATER INJ 20 ML IV SCH (20:00)
[2017-06-14] MEDS: CYCLOBENZAPRINE 10 MG TAB PO SCH (20:43)
[2017-06-15] MEDS: KETOROLAC 30 MG/1 ML SDV IVP PRN ×2 (04:43→09:36)
[2017-06-15] MEDS: HYDROmorphONE/DILAUDID 2 MG TAB PO PRN (04:50)
[2017-06-15 05:26] LABS: PLATELET COUNT 175 10^3/uL (150-400)
[2017-06-15 07:59] VITALS: BP 136/97
--- NOTE | 2017-06-15 08:34 | SOAPPROG ---
SOAP Progress Note Assessment/Plan: Assessment: Rule out Left knee septic arthritis and medial and lateral meniscus tears: Status post left knee arthroscopy I&D partial medial meniscectomy Plan: Left knee synovial fluid sent to pathology: positive for Strep Agalactiae Group B. Continue PICC line and medications per ID and hospitalist. Appreciate their reccs. Drains no longer in place: continue to monitor for abnormal bleeding/oozing/ discharge. Dressing: maintain dry dressing. Discussed with JOSS Leal. -Upon D/C can begin showering over the wound if uses waterproof bandaids and then replaces with new dry bandaids. Pain Medicine prn: pain well managed at today's visit. Being well controlled by Toradol. Ice/elevation left knee WBAT: PT/OT eval, appreciate their reccs. Ortho to follow: watch for abnormal bleeding/oozing/discharge, change in heat/ color of extremity, abnormal numbness/tingling. F/U in our office next week to examine knee. Questions/concerns call our office at [phone]. Patient discussed/agreed upon with Dr. Gee. 06/15/17 08:35 Subjective: Pt presents to [facility] ER 06/11 and the again on 06/12 with a left knee effusion and significant pain. He had multiple knee aspirations. He just underwent a left knee arthroscopy I&D, Partial medial meniscectomy. Cultures positive, see results below. Alert and oriented, able to respond appropriately to questions. Denies numbness/ tingling, change in heat/color of extremity or of wound site, cough, congestion , chest pain, SOB, dyspnea, claudication, abnormal bleeding/oozing/discharge, worsening pain, fever, chills, NVD. Has been up ambulating without difficulty. Pain well managed this morning by Toradol. Has passed flatus and had BM. Objective: Vital Signs Temp Pulse Resp BP Pulse Ox 36.6 C 68 16 136/97 H 98 06/15/17 07:57 06/15/17 07:57 06/15/17 07:57 06/15/17 07:57 06/15/17 07:57 Microbiology 06/12/17 17:40 Gram Stain - Final Knee - Aspirate Laboratory Results 06/15/17 05:00 06/13/17 04:48 06/14/17 06/15/17 06/16/17 05:59 05:59 05:59 Intake Total 690 3400 Output Total 1150 Balance -460 3400 A/o. Able to respond appropriately to questions. NAD. Non-labored breathing. No diaphoresis. M/S: Left knee with no abnormal bleeding/oozing/discharge. Bandage in place with no erythema, calor, signs of infection noted around wound sites. No fluctuance noted. Drains no longer in place. No change in heat/color of extremity. Passive ROM in great toe in all planes produced no reproducible pain in lower compartments. DNVI b/l with gross sensation intact and no focal deficits. Brisk cap refill b/l in lower extremities with negative b/l Homans. Calves soft/supple and NTTP b/l. Able to ambulate with use of crutches. - Pending Discharge Pending Discharge Within 48 Hours: Yes Pending Discharge Date: 06/17/17 (Per hospitalists and ID.) Pending Discharge Time: 11:00 ICD10 Worksheet Patient Problems: Problems Problem Status Onset Effusion, left knee Acute
[2017-06-15] MEDS ORDERED: NAPROXEN SODIUM 220 MG TAB PO ONE (09:28)
--- NOTE | 2017-06-15 09:33 | PDIAF ---
- Diagnosis Diagnosis: septic arthritis L knee group b strep Code Status: Full Code - Medication Management Discharge Medications: Medications to Continue on Transfer Atenolol [Tenormin 25 mg (*)] 25 mg PO DAILY 06/12/17 [Last Taken 06/12/17] ALPRAZolam [Xanax Xr] 1 mg PO DAILY 06/13/17 [Last Taken 06/12/17] predniSONE [Prednisone] 0 mg PO AD 06/13/17 [Last Taken 06/12/17 60mg] Acetaminophen [Tylenol 325mg (*)] 650 mg PO Q4HRS PRN tab 06/14/17 [Last Taken Unknown] Naproxen 500 mg PO BID PRN #40 tablet 06/14/17 [Last Taken Unknown] cefTRIAXone [Rocephin] 2 gm IV DAILY@1999 vial 06/14/17 [Last Taken Unknown] HYDROmorphone HCL [Dilaudid 2 mg (*)] 2 mg PO Q4 PRN #10 tab 06/15/17 [Last Taken Unknown] Penitentiary Antibiotics: ceftriaxone 2 g IV qday Penitentiary Antibiotic Stop Date: 06/27/17 Discharge Medications: Refer to the Discharge Home Medication list for PRN reason. PICC Care - Routine: Yes - Orders Services needed: Home Care, Registered Nurse Home Care Face to Face: I certify that this patient was under my care and that I had the required qrur-ao-ilgh encounter meeting the encounter requirements on the discharge day. My findings support the fact that the patient is homebound as defined in Home Care Face to Face Continued: CMS Chapter 7 Medicare Benefits Manual 30.1.1 , The condition of the patient is such that there exists a normal inability to leave home and consequently, leaving home would require a considerable and taxing effort. Isolation Type: None Oxygen: NA Diet Recommendation: no restrictions on diet Additional Instructions: WBAT. Dressing: maintain dry dressing. Upon D/C can begin showering over the wound if uses waterproof bandaids and then replaces with new dry bandaids. Continue PICC per ID. - Labs/Radiology CBC w/diff Date: 06/18/17 (weekly) CMP Date: 06/18/17 (weekly) Call or Fax Lab and Imaging Results to: Dr. Jakob Rocha - Follow Up Care Current Providers and Referrals: Ericka Gee MD [Medical Doctor] - follow up in 1 week NONE *PRIMARY CARE P,. [Primary Care Provider] - As per Instructions Jakob Rocha MD [Medical Doctor] - follow up in 2 weeks ()
[2017-06-15] MEDS: ENOXAPARIN 40 MG/0.4 ML SYR SC SCH (09:40)
[2017-06-15] MEDS: ATENOLOL 25 MG TAB PO SCH (09:41)
[2017-06-15] MEDS: SENNOSIDES/DOCUSATE SODIUM TAB PO SCH (09:42)
--- NOTE | 2017-06-15 10:50 | ASMTLACE ---
AILEENE Length of stay for Answers: 3 days current admission Acuity / Level of Answers: Yes Care: Did the patient have an inpatient admission? Comorbidities - select Answers: Other Notes: multiple knee surgeries all that apply # of Emergency department Answers: 1-2 visits in the last 6 months Score: 8 Date Signed: 06/15/2017 10:49 AM Electronically Signed By:Clari Villaseñor RN
--- NOTE | 2017-06-15 15:10 | GCON ---
[f rep st] CONSULTATION LATE ENTRY INFECTIOUS DISEASE INPATIENT CONSULTATION DATE OF CONSULTATION: 06/14/2017 REFERRING PHYSICIAN: Daniel Amin MD REASON FOR REFERRAL: Left knee septic arthritis. HISTORY OF PRESENT ILLNESS: Patient is a 42-year-old male, who was admitted to [facility] on 06/12/2017, complaining of left knee pain. The patient has a history of multiple knee surgeri es. The patient however was running and biking quite a bit until just a few days ago. He started murcia ving low-grade pain in the left knee, but it became increasingly severe over the last 24 hours. It w as swollen. The patient came into the emergency room prior to his admission and no fever or redness was seen. He had an aspirate of his knee and the presumptive diagnosis at that point was gout or pseudogout. T he knee fluid showed a high white blood cell count, but the Gram stain was negative. Patient was sen t home on some steroids and antiinflammatory meds. The patient returned to the hospital on the day o admission with increasing symptoms. By that point, his aspirate has grown out group B strep. The patient went to the operating room the evening of 06/12, and had a left knee washout. Now, [address] atus post that washout, he is up and ambulating in the hallways. We are called for IV antibiotic man agement. PAST MEDICAL HISTORY: Negative. PAST SURGICAL HISTORY: Status post multiple ACL and meniscal knee surgeries in the left knee. ANTIBIOTICS: Cefazolin. ALLERGIES: Patient is allergic to oxycodone. FAMILY HISTORY: The patient is . baby boy. SOCIAL HISTORY: No tobacco, alcohol or drug use noted. REVIEW OF SYSTEMS: Other than that detailed above in the history of present illness, comprehensive 10-system review is negative. PHYSICAL EXAMINATION: VITAL SIGNS: Temperature maximum 37.9, temperature current 36.8, heart rate i s 90, respiratory rate is 16, blood pressure is 133/84. GENERAL: The patient is a well-formed, well -nourished male, in no acute distress. He is not toxic in appearance. He is alert and oriented x3. He has a pleasant demeanor. HEENT: Normocephalic for age. Atraumatic. No scleral icterus. No or al lesion or drainage from the nares. LUNGS: Clear to auscultation bilaterally. He has good effort . HEART: Regular rate and rhythm. No significant murmur, rub or gallop heard. No significant nick pheral edema noted. SKIN: Warm and dry to the touch. No rash noted. Patient is postoperative in h is left knee with a drain intact. Some serosanguineous fluid in the drain. No other rash or lesion noted. MUSCULOSKELETAL: No muscle or belly tenderness is noted. No joint line effusion or arthriti s is noted apart from left knee involvement. NEURO: Cranial nerves 2-12 seem intact, peripheral sen sation seems intact in extremities. LABORATORY DATA: Patient has a CBC dated 06/13/2017, shows a white blood cell count of 11.4, hemoglo bin 14.0, hematocrit 39.7, platelet count 148. Differential is left-shifted with 87% segmented neutr ophils. Serum chemistries on 06/13/2017 are all within normal limits. Creatinine 0.7. MICROBIOLOGIC DATA: Patient has knee fluid aspirate dated 06/12/2017, which is growing group B Strep tococcus. ASSESSMENT: Septic arthritis of the left knee and a joint with multiple tendon and meniscal damage. Patient does have very old screws in the knee from about 13-15 years ago. I suspect that these scre ws are likely encased in bone at this point, and unlikely to be interfacing with joint fluid. This w as explained in detail to the patient and his . Given the timeframe that has gone since that marvel dware placement, I do not believe there is any likelihood that that hardware could be serving as init is. I think this is a recent exposure of the knee joint to group B strep, likely from a brief bacter emia. At this point, status post washout, we will treat this as a standard non-prosthetic septic art hritis. We will change him to IV ceftriaxone 2 g a day and treat him for 2 weeks total postoperative ly. If the symptoms go away and stay away, no other intervention will be necessary. There is an inc reased risk due to his history of knee surgery that he may reoccur. This was discussed in detail wit h the patient and his . They voiced their understanding. We will set up a PICC line and home IV antibiotics. Patient will follow up in office. PLAN: 1. PICC line placement. 2. Change Ancef to ceftriaxone 2 g daily. Duration 2 weeks from surgery. 3. Stable for discharge. He can follow up in office in 1 week. Again, this is a late entry inpatient Infectious Disease consultation. /[id number]/MODL
--- NOTE | 2017-06-15 17:14 | ASDISCHSUM ---
Discharge Information Plan Status:IV ABX/Infusion Medically Cleared to Leave: Discharge Date:06/15/2017 01:03 PM D/C Disposition:Home Health Service ADT D/C Disposition:Home Health Service Projected Discharge Date:06/14/2017 11:00 AM Transportation at D/C: Discharge Delay Reason: Follow-Up Date:06/14/2017 11:00 AM Discharge Slot: Final Diagnosis: Placement Information Referral Type:Home Infusion Referral ID:[id number] Provider Name:[facility] Address 1:[address] Address 2: City:[place] Selection Factors: State:[place] Referral Type:*Home Health Care Services Referral ID:[id number] Provider Name:[facility] Address 1[address] Address 2: City:[place] Selection Factors: State:[place] Patient Contact Information Contact Name:YAA Relationship: Address:[address] [place], [place] [address]Jannie [facility] Work Phone: City:[employer] [facility] Phone: [facility]/Zip Code:[place] [address] Email: Financial Information Financial Class:HMO and PPO Plans Primary Plan Desc:MARY CHAVEZ PPO [employer] Primary Plan Number:[id number] Secondary Plan Desc: Secondary Plan Number: Assessment Information [facility] Progress Note CM Note CM Note Notes: Pt in for knee effusion, had L knee I&D. OT/PT recs pending. PT currently on IV cefazoline Q8. Pt resides with and works at . D/c needs are TBD. CM will continue to follow for d/c planning. Date Signed: 06/13/2017 12:47 PM Electronically Signed By:PURVI Bliss [facility] CM Progress Note CM Note CM Note Notes: Chart reviewed. Discussed with MD. Patient to dc home with PICC and IV antibiotic infusions. PICC ordered. IV antibiotics changed to daily. DC to happen tomorrow after patient seen by ortho. ID notes sent to [facility] and [facility] via [facility]. [facility] visited with patient and [facility] RN to open. Disposition: Home with home infusion and [facility] RN Date Signed: 06/14/2017 03:32 PM Electronically Signed By:Clara Thompson RN Case Management Discharge Plan Note Case Management Discharge Discharge Order Complete? Answers: Yes Patient to Obtain Answers: Other Notes: [employer] Medications Transportation Arranged Answers: Family/Friends Faxed Final Orders Answers: Yes Family Notified Answers: Yes Notes: pt will notify Discharge Comments Notes: Pt will dc home with today. His parents are also visiting. Pt will be followed by [facility] and [facility] for home IV ABX's. Met w/pt to discuss. He is in agreement of dc poc and aware of time [facility] RN will be out to see him. Spoke w/Thalia from [facility] who confirmed w/Dr Rocha's office that OK to give ABX early this evening. Orders sent to [employer]; they will deliver by 4PM today. Discussed w/RN who will call report to [facility]. Date Signed: 06/15/2017 10:47 AM Electronically Signed By:Clari Villaseñor RN LACE LACE Length of stay for Answers: 3 days current admission Acuity / Level of Answers: Yes Care: Did the patient have an inpatient admission? Comorbidities - select Answers: Other Notes: multiple knee surgeries all that apply # of Emergency department Answers: 1-2 visits in the last 6 months Score: 8 Date Signed: 06/15/2017 10:49 AM Electronically Signed By:Clari Villaseñor RN Intervention Information
--- NOTE | 2017-06-15 21:35 | PDDCSUM ---
Discharge Summary Discharge Summary: DISCHARGE SUMMARY FOLLOW-UP ITEMS: Wound reassessment at Dr. Gee's office next week. DATE OF ADMISSION: 06/12/17 DATE OF DISCHARGE: 06/15/17 DISCHARGE DIAGNOSES: 1. Acute septic arthritis 2/2 group B strep, POA 2. Acute palpitations CONSULTATIONS: Ortho by Dr. Gee, YOLIE PROCEDURES / IMAGIN06/12/17 wash-out by Dr. Gee, PICC linie 06/14/17 CHIEF COMPLAINT: L. knee pain/swelling SUBJECTIVE: Pain well-managed, no longer experiencing palpitations PHYSICAL EXAM ON DISCHARGE: Ongoing swelling L knee w/o erythema tracking up distal LLL, heart rhythm regular w/o MRG HOSPITAL COURSE BY PROBLEM: 1. Acute septic arthritis. POA, 2/2 Group B strep, unclear origin, although ID suggested possibly 2/2 recent upper pharyngeal strep infection. Dx confirmed on wash-out, which was conducted after repeat aspirate failed to control pain/ effusion. Dr. Gee noted cloudy material w/ high WBC count, and Group B Strep grew on Cx. The prior screws did not appear to be affected, and Dr. Rocha from ID was comfortable starting with a 2 weeks course of IV Ceftriaxone, w/ outpt clinic reassessment. The drains were safely pulled, and Dr. Gee will see him in follow-up next week. The pain was well managed on NSAIDs, and he has been transitioned to Naproxen 500mg bid at discharge, w/ PO dilaudid for breakthrough pain. 2. Acute palpitations. Unclear whether transient NSVT, CXR w/PICC placement excellent, not touching RV, unlikely to be causing electrical activity, and no e /o of arrhythmia on tele prior to DC. DISCHARGE MEDICATIONS: Please see official discharge medication reconciliation sheet in chart, Ceftriaxone 2g x 14 days, PRN naproxen 500mg bid, PRN dilaudid 2mg. DISCHARGE INSTRUCTIONS: Please follow-up at Dr. Gee's office and w/ Dr. Rocha as scheduled. TIME SPENT: Greater than 30 minutes were spent on direct patient care, as well as discharge planning and preparation.
== END 2017-06-15 13:03 | disposition home health service (06) | DRG 487 ==
LOC: OBSVTOIN 12:36 → F3N 14:17
PROVIDERS: ADMIT Orthopaedic Surgery Hand Surgery; ATTEND Orthopaedic Surgery Hand Surgery
PROC: 0S9D3ZX Drainage of Left Knee Joint, Percutaneous Approach, Diagnostic (ICD-10-PCS; 2017-06-12)
PROC: 0SBD4ZZ Excision of Left Knee Joint, Percutaneous Endoscopic Approach (ICD-10-PCS; principal; 2017-06-12 16:45)
PROC: 3E1U38Z Irrigation of Joints using Irrigating Substance, Percutaneous Approach (ICD-10-PCS; principal; 2017-06-12 16:45)
PROC: 02HV33Z Insertion of Infusion Device into Superior Vena Cava, Percutaneous Approach (ICD-10-PCS; 2017-06-14)
DX: M00.862 Arthritis due to other bacteria, left knee (principal); B95.1 Streptococcus, group B, as the cause of diseases classified elsewhere; M23.222 Derangement of posterior horn of medial meniscus due to old tear or injury, left knee; M94.262 Chondromalacia, left knee; R00.2 Palpitations
CPT/HCPCS: 96374; 97116-GP; 97161-GP; 97165-GO; 97530-GP; 97535-GO; C1751; J0171; J0690; J0696; J1170; J1650; J1885; J2060; J2405; J2704